=== PATIENT | female | born 1970 ===

== ENCOUNTER 2018-09-20 12:08 | Day surgery (SDC) | payer BC, OTHER ==
[~2018-09-20 12:08] MED LIST: FENTANYL CITRATE INJ/PF 100 MCG/2 ML AMPUL ONE; PROPOFOL INJ 200 MG/20 ML VIAL IV ONE
[2018-09-20] MEDS ORDERED: LIDOCAINE 2% INJ-PF (20 MG/ML) 10 ML AMPUL ONE (13:57)
[2018-09-20] MEDS ORDERED: ONDANSETRON HCL INJ/PF 4 MG/2 ML SDV ONE (14:08)
[2018-09-20] MEDS ORDERED: DEXAMETHASONE SOD PHOSPHATE INJ 4 MG/1 ML VIAL ONE (14:09)
--- NOTE | 2018-09-20 14:27 | Operative Report ---
Operative Report DATE OF SURGERY: 09/20/18 Operative Report: The risks benefits and alternatives of the procedure explained to the patient in detail and informed consent is obtained.A GIF Olympus video scope was inserted into the patient's mouth and hypopharynx, the esophagus is identified intubated and insufflated, the scope was then advanced through the esophagus stomach and duodenum, retroflexion maneuver is done the esophagus stomach and first and second portions of the duodenum examined PREOPERATIVE DIAGNOSIS: Epigastric pain POSTOPERATIVE DIAGNOSIS: Schatzki's ring status post breakage. Gastritis status post biopsy rule out Helicobacter pylori OPERATION: EGD with biopsy SURGEON: SABRA HDZ ANESTHESIA: LMAC TISSUE REMOVED OR ALTERED: As noted above. COMPLICATIONS: None. ESTIMATED BLOOD LOSS: None. INTRAOPERATIVE FINDINGS: As noted above. PROCEDURE: Patient tolerated the procedure well. No immediate postprocedure complications are noted. Patient discharged in good condition. Discharge date 09/20/2018. Discharge diet: Regular. Discharge activity: Regular. 2-3-week follow-up to discuss findings. Patient is instructed call the office or proceed to the emergency room should there be any further proximal questions. Wait on the pathology.
[2018-09-20 15:56] VITALS: BP 116/64
== END 2018-09-20 15:35 | disposition home or self-care (01) ==
LOC: OROUT 12:08
PROVIDERS: ATTEND Internal Medicine Gastroenterology
DX: K22.2 Esophageal obstruction (principal); K29.50 Unspecified chronic gastritis without bleeding; J45.909 Unspecified asthma, uncomplicated; M19.90 Unspecified osteoarthritis, unspecified site; D64.9 Anemia, unspecified; K21.9 Gastro-esophageal reflux disease without esophagitis; Z79.899 Other long term (current) drug therapy; Z79.51 Long term (current) use of inhaled steroids; Z88.6 Allergy status to analgesic agent
CPT/HCPCS: 43239; 81025; 88305 ×2; J1100; J3010; J2405; J2704; J3490; 731